=== PATIENT | female | born 1990 | race Caucasian/White ===

== ENCOUNTER 2017-08-19 11:47 | Emergency (ER) | payer SELFPAY ==
[~2017-08-19] VITALS: Ht 167.6 cm; Wt 61.4 kg
[2017-08-19] MEDS ORDERED: DIAZEPAM 5 MG TABLET PO ONE (13:45)
[2017-08-19] MEDS ORDERED: KETOROLAC TROMETHAMINE 10 MG TABLET PO ONE (13:45)
[2017-08-19 14:02] VITALS: BP 125/85
== END 2017-08-19 14:16 | disposition home or self-care (01) ==
LOC: EMS 11:49
DX: S39.012A Strain of muscle, fascia and tendon of lower back, initial encounter (principal); M62.830 Muscle spasm of back; W18.39XA Other fall on same level, initial encounter; Y93.89 Activity, other specified; Y92.89 Other specified places as the place of occurrence of the external cause; Y99.8 Other external cause status
CPT/HCPCS: 99283